=== PATIENT | female | born 1970 | race Caucasian/White ===

== ENCOUNTER → 2017-06-01 | Outpatient (CLI) | payer BC ==
--- NOTE | 2017-06-01 14:45 | FL ---
EXAMINATION TYPE: FL barium swallow DATE OF EXAM: 06/01/2017 COMPARISON: NONE HISTORY: Dysphasia TECHNIQUE: A double contrast UGI study is performed. FINDINGS: Double air-contrast technique is utilized. The esophagus dilates to normal caliber has norm al contour to the gastroesophageal junction. Gastroesophageal junction opens to normal caliber. 1.1 minutes fluoroscopy time was provided. 16 images are obtained. No intraluminal or extramural defects are evident. There is some mild presbyesophagus present. Gastro esophageal reflux is evident. Secondary contraction was evident during the examination. No focal sten osis is evident. IMPRESSIONS: 1. Gastroesophageal reflux. 2. Mild presbyesophagus.
== END ==
LOC: RADFLWHC 09:29
PROVIDERS: ATTEND Otolaryngology
DX: K21.9 Gastro-esophageal reflux disease without esophagitis (principal); K22.8 Other specified diseases of esophagus
CPT/HCPCS: 74220

== ENCOUNTER → 2017-06-11 | Outpatient (CLI) | payer BC | LOC: RADMRIMAIN 17:03 | PROVIDERS: ATTEND Otolaryngology | DX: Z53.9 Procedure and treatment not carried out, unspecified reason (principal) ==

== ENCOUNTER → 2017-06-22 | Outpatient (CLI) | payer BC ==
--- NOTE | 2017-06-23 20:53 | CT ---
EXAMINATION TYPE: CT soft tissue neck w con DATE OF EXAM: 06/22/2017 COMPARISON: NONE HISTORY: 47-year-old female lump back of neck left side-marked with BB TECHNIQUE: Contiguous axial scanning of the neck performed with IV Contrast, patient injected with 10 0 mL of Omnipaque 300. Coronal/sagittal reconstructions performed. CT DLP: 761 mGycm Automated exposure control for dose reduction was used. FINDINGS: Visualized intracranial structures, orbits and globes, paranasal sinuses, and mastoid air cells appea r clear. The nasopharynx is clear. Mild lingual tonsillar hypertrophy. Oropharynx otherwise clear. Epiglottis and prevertebral soft tissues within normal limits. Glottic and subglottic structures as well as the tracheal column and visualized upper lungs appear cl ear. There is thyromegaly with multiple nodules. Right and left lobes measure 6.0 and 5.7 cm craniocaudal, respectively. Largest hypodense nodule by CT is 8 mm the this can be further evaluated with ultrasou nd. The submandibular glands are satisfactory. Parotid glands are partially atrophic. Scattered nonenlarged cervical lymph nodes are present. These are prominent measuring up to 12 mm lef t Station 2, coronal image 42. No cervical lymphadenopathy by CT size criteria. There is a palpable marker along the left posterior upper neck. Located directly behind the posterior margin of the sternocleidomastoid is a prominent 8 mm station 5 lymph node. No other suspicious mass is identified. No osseous destructive process. IMPRESSION: 1. PALPABLE MARKER ALONG THE LEFT POSTERIOR UPPER NECK. UNDERLYING THE MARKER IS A PROMINENT 8 MM STA TION 5 LYMPH NODE. THIS IS PROBABLY REACTIVE/POST INFLAMMATORY. IT CAN BE FOLLOWED CLINICALLY AND IS NOT ENLARGED BY CT SIZE CRITERIA. 2. NO SUSPICIOUS LYMPHADENOPATHY OR NECK MASS IDENTIFIED. 3. NOTE THYROMEGALY WITH MULTIPLE THYROID NODULES. FINDINGS SUGGEST MULTINODULAR GOITER. RECOMMEND FU RTHER ULTRASOUND EVALUATION.
== END | disposition home or self-care (01) ==
LOC: RADCTMAIN 17:46
PROVIDERS: ATTEND Otolaryngology
DX: E01.0 Iodine-deficiency related diffuse (endemic) goiter (principal)
CPT/HCPCS: 70491

== ENCOUNTER → 2020-05-10 | Outpatient (CLI) | payer BC ==
--- NOTE | 2020-05-11 08:43 | CT ---
EXAMINATION TYPE: CT soft tissue neck wo/w con DATE OF EXAM: 05/10/2020 COMPARISON: 06/22/2017 HISTORY: 50-year-old female RIGHT SIDE NECK LUMP, HX OF THYROID CA TECHNIQUE: Contiguous axial scanning of the soft tissues of the neck performed without and with IV Co ntrast, patient injected with 100 mL of Isovue 300. Coronal/sagittal reconstructions performed. CT DLP: 1110.7 mGycm Automated exposure control for dose reduction was used. FINDINGS: Rightward nasal septal deviation. Paranasal sinuses and mastoid air cells appear clear. Orbits and gl obes are intact. Nasopharynx is clear. Oropharynx is clear. Epiglottis and prevertebral soft tissues are clear. Glottic and subglottic structures as well as the tracheal column are clear. Minimal emphysematous change in the visualized upper lungs. There has been interval thyroidectomy. No residual thyroid tissue is identified. Some scattered nonen larged mediastinal lymph nodes are present. The largest are bilateral station 2A measuring up to 1.1 cm short axis, refer to coronal image 36 and 37. These do not appear significantly different from 201 7. A 7 mm submental lymph node is unchanged. Additional scattered nonenlarged, small cervical lymph node s are present on both sides of the neck. Parotid gland mildly atrophic. Salivary glands are satisfactory. No suspicious neck mass identified at this time. Bones: Moderate degenerative disc disease C5-C6. Large dental caries involving bilateral maxillary mo lars. IMPRESSION: 1. INTERVAL THYROIDECTOMY. NO RESIDUAL THYROID TISSUE OR SUSPICIOUS MASS IN THE THYROIDECTOMY BED. 2. PROMINENT BUT NONENLARGED 1.1 CM UPPER CERVICAL LYMPH NODES REMAIN UNCHANGED FROM 2017. NO SUSPICI OUS LYMPHADENOPATHY. 3. A PALPABLE MARKER WAS NOT PLACED AT THE SITE OF PATIENT'S REPORTED LUMP. IF THERE REMAINS PERSISTE NT CLINICAL CONCERN, THE EXAM CAN BE REVIEWED WITH DIRECT ATTENTION. 4. COPD WITH MILD EMPHYSEMA IN THE VISUALIZED UPPER LUNGS. 5. LARGE DENTAL CARIES INVOLVING THE BILATERAL MAXILLARY MOLARS.
== END | disposition home or self-care (01) ==
LOC: RADCTMAIN 16:46
PROVIDERS: ATTEND Internal Medicine
DX: Z08 Encounter for follow-up examination after completed treatment for malignant neoplasm (principal); R22.0 Localized swelling, mass and lump, head; R22.1 Localized swelling, mass and lump, neck; E89.0 Postprocedural hypothyroidism; Z85.850 Personal history of malignant neoplasm of thyroid
CPT/HCPCS: 70492; Q9967